=== PATIENT | female | born 1950 | race American Indian/Alaskan Native ===

== ENCOUNTER 2017-02-16 11:47 | Outpatient (CLI) | payer MEDICARE ==
--- NOTE | 2017-02-16 15:42 | XRay Report ---
Bilateral hips and pelvis: History: Hip pain. Findings: No lytic or blastic lesions and iliac bones. Mild arthritic changes at the superior lateral aspect of right and left hip joint. No fracture dislocation or soft tissue calcification. Impression: Mild arthritic changes hip joints.
--- NOTE | 2017-02-16 15:43 | XRay Report ---
Lumbar spine 3 views: History: Back pain. Findings: Normal height of vertebral bodies. Decrease in height of intervertebral disc spaces. Sclerotic articular surfaces with peripheral osteophytes suggestive of degenerative changes. Degenerative changes also noted in the facet joints of lower lumbar spine. No soft tissue calcification. Impression: Degenerative lumbar spine
== END 2017-02-16 11:48 | disposition home or self-care (01) ==
LOC: SPVIMAG 11:47
DX: M16.0 Bilateral primary osteoarthritis of hip (principal); M47.896 Other spondylosis, lumbar region
CPT/HCPCS: 72100; 73521

== ENCOUNTER 2017-04-27 10:05 | Outpatient (CLI) | payer MEDICARE ==
--- NOTE | 2017-04-27 15:36 | Mammography Report ---
BILATERAL DIGITAL SCREENING MAMMOGRAM with CAD: 04/27/17 10:05:00 CLINICAL: Routine screening. COMPARISON:04/14/16 FINDINGS: The breasts are heterogeneously dense, which may obscure small masses. No mass, architectural distortion or suspicious calcifications. IMPRESSION: No mammographic evidence of malignancy. BI-RADS CATEGORY: 1 - - Negative RECOMMENDATION: Routine mammographic screening in one year. COMMENT: Patient follow-up letters are generated by our [employer] application.
== END 2017-04-27 10:06 | disposition home or self-care (01) ==
LOC: SPVWC 10:05
DX: Z12.31 Encounter for screening mammogram for malignant neoplasm of breast (principal)
CPT/HCPCS: 77067; G0202

== ENCOUNTER 2017-05-03 11:54 | Outpatient (CLI) | payer MEDICARE ==
--- NOTE | 2017-05-03 20:11 | XRay Report ---
FINAL REPORT PROCEDURE: XR SPINE LUMBOSACRAL 2-3V TECHNIQUE: Lumbar spine radiographs, including AP, lateral, and lumbosacral spot views. CPT 28215 HISTORY: LOW BACK PAIN COMPARISON: No prior studies are available for comparison. FINDINGS: Alignment: Minimal degree retrolisthesis measuring about 2 millimeters is noted at L3-4. Minimal degree anterolisthesis is noted at L4-5 measuring about 3 millimeters. Vertebral body heights/Disk spaces: Disc space narrowing is identified at L3-4 and L4-5. Fracture(s): None. Facets: Facet arthropathy is identified from L3-4 to L5-S1. Bone mineralization: Normal. IMPRESSION: No acute fracture. Facet arthropathy. Degenerative disc disease at L3-4 and L4-5..
--- NOTE | 2017-05-03 20:37 | XRay Report ---
FINAL REPORT PROCEDURE: XR HAND BILAT 3+V TECHNIQUE: LEFT hand radiographs, AP, lateral, and oblique views. CPT 03351-OU HISTORY: BILATERAL HAND PAIN COMPARISON: No prior studies are available for comparison. FINDINGS: Fracture (s) and/or Dislocation(s): None . Alignment: Normal . Joint space(s): narrowing of interphalangeal joint spaces is noted with moderate degree osteophyte formation.. Soft tissues: Normal . Bone mineralization: Normal . Foreign bodies: None . IMPRESSION: Changes of osteoarthritis. No acute fracture..
== END 2017-05-03 11:55 | disposition home or self-care (01) ==
LOC: SPVIMAG 11:54
DX: M19.042 Primary osteoarthritis, left hand (principal); M19.041 Primary osteoarthritis, right hand; M51.36 Other intervertebral disc degeneration, lumbar region
CPT/HCPCS: 72100

== ENCOUNTER 2018-02-25 10:09 | Outpatient (CLI) | payer OTHER, MEDICARE ==
--- NOTE | 2018-02-25 12:20 | XRay Report ---
LEFT KNEE, 2 views: History: Osteoarthritis. Normal bone mineralization. Moderate osteoarthritic changes are identified throughout all 3 compartments of the knee. No evidence for fracture, large osteochondral defect or bone lesion. Small joint effusion is noted on the lateral image. IMPRESSION: Moderate tricompartmental osteoarthritis. Small joint effusion.
== END 2018-02-25 10:10 | disposition home or self-care (01) ==
LOC: XRAY 10:09
PROVIDERS: ATTEND Orthopaedic Surgery
DX: M17.12 Unilateral primary osteoarthritis, left knee (principal)

== ENCOUNTER 2018-06-11 09:21 | Inpatient (IN) | payer OTHER, MEDICARE ==
[2018-06-03 09:46] LABS: Basophils % (Auto) 0.7 % (0.0-1.8); Eosinophils # (Auto) 0.2 K/mm3 (0.0-0.4); Hemoglobin 12.5 gm/dl (10.1-14.3); Lymphocytes # (Auto) 2.3 K/mm3 (1.2-5.4); Lymphocytes % (Auto) 36.4 % (13.4-35.0); Mean Corpuscular HGB Conc 33 % (30-34); Mean Corpuscular Volume 87 fl (79-97); Monocytes # (Auto) 0.6 K/mm3 (0.0-0.8); Monocytes % (Auto) 8.9 % (0.0-7.3); Platelet Count 207 K/mm3 (140-440); Red Blood Count 4.36 M/mm3 (3.65-5.03); Red Cell Distribution Width 14.6 % (13.2-15.2)
[2018-06-03 09:57] LABS: INR 0.98 (0.87-1.13)
[2018-06-03 10:18] LABS: Alanine Aminotransferase 13 units/L (7-56); BUN/Creatinine Ratio 12; Blood Urea Nitrogen 12 mg/dL (7-17); Calcium 9.3 mg/dL (8.4-10.2); Hemolysis Index 17
--- NOTE | 2018-06-03 11:08 | Anesthesia Consultation ---
Anesthesia Consult and Med Hx Date of service: 06/03/18 - Airway Anesthetic Teeth Evaluation: Good ROM Head & Neck: Adequate Mental/Hyoid Distance: Adequate Mallampati Class: Class II Intubation Access Assessment: Probably Good - Pulmonary Exam CTA: Yes - Cardiac Exam Cardiac Exam: RRR - Pre-Operative Health Status ASA Pre-Surgery Classification: ASA3 Proposed Anesthetic Plan: General Nerve Block: Adductor Canal Block - Pulmonary Hx Smoking: No Hx Asthma: No COPD: No Hx Sleep Apnea: No (JADE PRE SCREEN LOW RISK.) - Cardiovascular System Hx Hypertension: Yes (X 5 YRS) Hx Heart Attack/AMI: No Hx Angina: No Hx Pacemaker: No - Central Nervous System CVA: No Hx Back Pain: Yes - Endocrine Hx Renal Disease: No - Hematic Hx Anemia: Yes ( TEEN ONLY) - Other Systems Hx Cancer: No
[~2018-06-11 09:21] MED LIST: ANCEF/STERILE WATER 2 GM/20 ML IV NR
--- NOTE | 2018-06-11 10:17 | Anesthesia Day of Surgery ---
Anesthesia Day of Surgery - Day of Surgery Patient Examined: Yes Patient H&P Reviewed: Yes Patient is NPO: Yes
[2018-06-11] MEDS ORDERED: LACTATED RINGERS 1,000 ML ONE (10:19)
[2018-06-11] MEDS ORDERED: NACL ONE (10:28)
[2018-06-11] MEDS ORDERED: TRANEXAMIC ACID ONE (10:28)
[2018-06-11] MEDS ORDERED: TORADOL ONE (10:28)
[2018-06-11] MEDS ORDERED: MARCAINE-EPI 0.5%-1:200,000 INFILTRATI ONE ×2 (10:28→14:11)
[2018-06-11] MEDS ORDERED: NACL 0.9% 100 ML ONE (10:29)
[2018-06-11] MEDS ORDERED: MORPHINE ONE (10:29)
[2018-06-11] MEDS ORDERED: DILAUDID IV PRN (10:30)
[2018-06-11] MEDS ORDERED: NEURONTIN PO NR (10:30)
[2018-06-11] MEDS ORDERED: LACTATED RINGERS 1,000 ML IV SCH (10:30)
[2018-06-11] MEDS ORDERED: VERSED IV NR (10:30)
[2018-06-11] MEDS ORDERED: DECADRON ONE ×2 (10:42→12:52)
--- NOTE | 2018-06-11 11:37 | Progress Note ---
Subjective Date of service: 06/11/18 (block note) Principal diagnosis: L knee DJD Interval history: 68 y/o F presenting for L TKA. Surgeon requests block for postop analgesia. Informed consent obtained. Pt sedated with midazolam. All blocks performed under ultrasound guidance, and under clean conditions after chlorhexidine prep. L adductor canal with 30 ml 0.25% Bupivacaine with 4 mg decadron. L Ipack performed with 20 ml 0.25% bupivacaine with 4 mg decadron. Bilateral superior genicular branches blocked with 10 ml 0.25% bupivacaine. Pt tolerated well, no heme or paresthesia at any site. All volume administered via 21ga b bevel needle. Objective - Constitutional Vitals: Vital Signs - 12hr 06/11/18 06/11/18 06/11/18 09:55 10:27 10:37 Temperature 98.4 F Pulse Rate 80 75 Respiratory 15 15 18 Rate Blood Pressure 136/78 142/84 O2 Sat by Pulse 100 99 Oximetry 06/11/18 06/11/18 06/11/18 10:45 10:51 10:56 Temperature Pulse Rate 77 70 72 Respiratory 21 16 17 Rate Blood Pressure 131/79 131/77 133/78 O2 Sat by Pulse 99 100 100 Oximetry 06/11/18 06/11/18 06/11/18 11:01 11:06 11:20 Temperature Pulse Rate 74 69 61 Respiratory 17 17 17 Rate Blood Pressure 133/78 127/74 122/65 O2 Sat by Pulse 100 96 97 Oximetry - Labs CBC & Chem 7: 06/03/18 09:30 06/03/18 09:30
[2018-06-11] MEDS ORDERED: DILAUDID ONE (11:44)
[2018-06-11] MEDS ORDERED: DIPRIVAN 10 MG/ML IV ONE (11:44)
[2018-06-11] MEDS ORDERED: XYLOCAINE MPF 2% ONE (11:44)
[2018-06-11] MEDS ORDERED: NACL IV ONE (12:50)
[2018-06-11] MEDS ORDERED: TRANEXAMIC ACID IV ONE (12:50)
[2018-06-11] MEDS ORDERED: ZOFRAN ONE (12:52)
[2018-06-11] MEDS ORDERED: SUBLIMAZE ONE ×2 (13:12→13:53)
[2018-06-11] MEDS ORDERED: NACL 0.9% IR ONE (13:45)
[2018-06-11] MEDS ORDERED: MORPHINE IM ONE (14:11)
[2018-06-11] MEDS ORDERED: NACL 0.9% IV ONE (14:11)
[2018-06-11] MEDS ORDERED: TORADOL IV ONE (14:11)
[2018-06-11] MEDS ORDERED: MORPHINE IV PRN (15:23)
[2018-06-11] MEDS ORDERED: ZOFRAN IV PRN (15:23)
[2018-06-11] MEDS ORDERED: AMBIEN PO PRN (15:23)
--- NOTE | 2018-06-11 15:36 | Procedure Note ---
Date of procedure: 06/11/18 Pre-op diagnosis: severe osteoarthritis left knee Post-op diagnosis: same Procedure: Left total knee arthroplasty Procedure The patient was brought to the or after the femoral nerve block and preoperative holding, he was placed in the or table in supine position following induction with Mac anesthesia the patient's left lower extremity was prepped and draped in the usual sterile manner. A timeout procedure was done to identify the patient and the correct operative site The leg was exsanguinated followed by insufflation of the pneumatic tourniquet to 300 mmHg. The midline incision was made centered over the patella this is taken down distally towards due to multiple medical incision was carried down sharply through skin and subcutaneous A sub-brow cyst approach was used after elevating the vastus off the distal femur. The knee was flexed to 90 following O's examination revealed typical where along the medial lateral compartments with peripheral osteophytes and bare bone in some places followinga large drill bit was used to enter the distal femoral canal following this the distal femoral cutting was applied approximately 8-9 mm of bone was resected next the attention was turned to the proximal tibia using the external alignment again 8-9 mL of proximal tibia was resected care was taken to protect the medial and lateral collateral ligaments the cruciate ligaments were sacrificed longus sizing of the femoral component was performed a +3 femoral component was selected this was followed by application of the 4 in 1 cutting block care was taken to resect the anterior posterior as well as solution at this at this point in time the knee was sized A flexion and extension Of 10 mm was selected this was followed by application of the trial components the knee was then taken to or range of motion and was found to be stable following this fixation holes were applied to both the distal femur and proximal tibia care was taken to remove the medial lateral menisci as well as any excess bone and soft tissue debris the knee was then copiously irrigated using pulse lavage The bone cement was mixed the bone bleeding surfaces were wiped dry using sterile gauze for menisci tibial component was inserted using the cement technique the 10 mm polyethylene spacer was applied and secured this was followed by placement of the femoral component again excess cement was removed the knee was then held in flexion ostomy extension until the cement hardened following hardening of cement again a second look was performed and the residual soft tissue N cement debris were removed at this time the baby was then taken through a range of motion and was found to be stable next the Kenyon's incision was repaired using #1 Vicryl in interrupted [id number] suture pattern the subcutaneous and skin were closed in a routine manner. Dressings w ere applied the patient tolerated the procedure the retinal complications she was then taken to postanesthesia recovery Anesthesia: MAC, regional Surgeon: LA[place] LEIVA Estimated blood loss: minimal Pathology: none Condition: stable Disposition: PACU
[2018-06-11] MEDS ORDERED: SODIUM CHLORIDE FLUSH SYRINGE 10 ML IV NR (16:00)
--- NOTE | 2018-06-11 16:01 | Post Anesthesia Evaluation ---
- Post Anesthesia Evaluation Patient Participated: Yes Airway Patent: Yes Stable Respiratory Function: Yes Nausea/Vomiting: No Temp > 96.8F: Yes Pain Manageable: Yes Adequeate Hydration: Yes Anesthesia Complications: No Other Comments: Adequate pain control with regional block as expected. No apparent complications.
[2018-06-11] MEDS: ANCEF/NS 1 GM/50 ML 1 GM/50 ML BAG IV SCH (21:17)
[2018-06-12] MEDS: MORPHINE IV PRN ×3 (01:21→21:38)
[2018-06-12 05:01] LABS: Hematocrit 34.2 % (30.3-42.9); Hemoglobin 11.2 gm/dl (10.1-14.3)
[2018-06-12] MEDS: ANCEF/NS 1 GM/50 ML 1 GM/50 ML BAG IV SCH (06:09)
[2018-06-12] MEDS: LOVENOX SUB-Q SCH ×2 (08:31→10:00)
[2018-06-12] MEDS ORDERED: PNEUMOVAX 23 IM ONE (12:00)
[2018-06-12] MEDS: PERCOCET 5/325 PO PRN ×2 (12:35→18:05)
--- NOTE | 2018-06-12 17:04 | Progress Note ---
Assessment and Plan Status post left total knee replacement Continue physical therapy and rehabilitation Subjective Date of service: 06/12/18 Principal diagnosis: L knee DJD Interval history: Complaining of some incisional pain otherwise doing well Objective Vital signs: Vital Signs - 12hr 06/12/18 06/12/18 07:38 11:56 Temperature 98.5 F 98.6 F Pulse Rate 74 76 Respiratory 18 18 Rate Blood Pressure 109/66 Blood Pressure 114/64 [Left] O2 Sat by Pulse 96 98 Oximetry Narrative Exam: Postoperative dressings intact and compartments soft Homans sign negative - Labs CBC & BMP: 06/12/18 04:26 06/03/18 09:30
--- NOTE | 2018-06-12 23:29 | XRay Report ---
FINAL REPORT EXAM: XR KNEE 1-2V LT HISTORY: postop evaluation TECHNIQUE: Frontal and lateral views left knee Comparison: None FINDINGS: There is a 2 part knee prosthesis in anatomic alignment. There are soft tissue changes consistent with acute postsurgical change IMPRESSION: 1. Status post placement of 2 part knee prosthesis with acute postsurgical change in the adjacent sof t tissues.
[2018-06-13] MEDS: PERCOCET 5/325 PO PRN ×2 (03:46→12:19)
[2018-06-13] MEDS: MORPHINE IV PRN ×3 (09:10→20:27)
[2018-06-13] MEDS: LOVENOX SUB-Q SCH (09:10)
--- NOTE | 2018-06-13 13:40 | Progress Note ---
Subjective Principal diagnosis: L knee DJD Interval history: no c/o's noted Objective Vital signs: Vital Signs - 12hr 06/13/18 06/13/18 06/13/18 03:52 07:30 09:40 Temperature 99.1 F 98.8 F Pulse Rate 76 76 Respiratory 18 20 Rate Blood Pressure 125/67 123/66 [Left] O2 Sat by Pulse 99 100 Oximetry 06/13/18 06/13/18 10:00 11:17 Temperature 99.1 F Pulse Rate 80 Respiratory 20 Rate Blood Pressure 109/62 [Left] O2 Sat by Pulse 100 93 Oximetry Narrative Exam: post op day 2 doing well will dc to home tomorrow with homehealth... - Labs CBC & BMP: 06/12/18 04:26 06/03/18 09:30
[2018-06-14] MEDS: PERCOCET 5/325 PO PRN ×3 (02:19→16:31)
[2018-06-14] MEDS: LOVENOX SUB-Q SCH (10:02)
--- NOTE | 2018-06-14 11:34 | Discharge Summary ---
Providers - Providers Date of Admission: 06/11/18 15:20 Date of discharge: 06/14/18 Attending physician: LAKE LEIVA MD 06/11/18 15:23 Consult to Case Management [CONS] Routine Services Needed at Discharge: Home Health Services Physical Therapy Notified:: nita notified 06/11/18 15:26 Physical Therapy Evaluation and Treat [CONS] Routine Comment: Reason For Exam: postoperative evaluation Weight bearing status?: Full wt bearing Assistive devices?: Yes If so list: Walker Primary care physician: MOLLY DAI Hospitalization Condition: Stable Procedures: left total knee replacement Disposition: [id number]/TX-[id number] HOME UNDER HOME [facility] Core Measure Documentation - Palliative Care Palliative Care/ Comfort Measures: Not Applicable - Core Measures Any of the following diagnoses?: none - VTE Discharge Requirements Deep Vein Thrombosis/Pulmonary Embolism Present on Admission: No Has pt received <5 days of overlap therapy or INR<2.0: Yes Anticoagulant overlap therapy prescribed at discharge: Yes Contraindication No Overlap Therapy order at DC: Medical Contraindication - Acute DC Discharge Requirements Aspirin at discharge: No Reason for no aspirin on DC: Medical contraindication SHANEL/ARB for LVSD if EF <40%: Not Applicable Reason for no SHANEL/ARB: Medical contraindication Beta cherie at discharge: No Reason for no beta cherie on DC: Medical contraindication Statin for LDL = or >100 mg/dl on DC: Not Applicable Reason for no statin on DC: Medical contraindication - Heart Failure Discharge Requirements SHANEL/ARB for LVSD if EF <40%: Not Applicable Beta cherie at discharge: No Reason for no beta cherie on DC: Medical contraindication - Stroke Discharge Requirements Statin for LDL = or >70 mg/dl on DC: Not Applicable Exam - Physical Exam Narrative exam: post op day 2 doing well will dc to home tomorrow with [facility]... - Constitutional Vitals: Temp Pulse Resp BP Pulse Ox 97.9 F 79 18 137/70 95 06/14/18 08:12 06/14/18 08:12 06/14/18 08:12 06/14/18 08:12 06/14/18 08:12 Plan Activity: advance as tolerated Weight Bearing Status: Weight Bear as Tolerated Diet: regular Wound: keep clean and dry Special Instructions: physical therapy Durable Medical Equipment Needed Upon Discharge: Walker-Standard, Bedside Commode Follow up with: MOLLY DAI MD, PHD [Primary Care Provider] - 7 Days Prescriptions: Apixaban [Eliquis] 0 mg PO BID 42 Days tablet HYDROcodone/APAP 7.5-325 [[place] 7.5-325 mg TAB] 1 each PO Q6HR PRN #40 tablet PRN Reason: Pain
[2018-06-14 15:37] VITALS: BP 131/75
== END 2018-06-14 18:23 | disposition home health service (06) | DRG 470 ==
LOC: OR 09:21 → EDSTATUS 11:30 → 3B-SURG 15:20
PROVIDERS: ADMIT Orthopaedic Surgery; ATTEND Orthopaedic Surgery
PROC: 0SRD0J9 Replacement of Left Knee Joint with Synthetic Substitute, Cemented, Open Approach (ICD-10-PCS; principal; 2018-06-11)
PROC: 3E0234Z Introduction of Serum, Toxoid and Vaccine into Muscle, Percutaneous Approach (ICD-10-PCS; 2018-06-12)
DX: M17.12 Unilateral primary osteoarthritis, left knee (principal); I10 Essential (primary) hypertension; Z23 Encounter for immunization; Z82.5 Family history of asthma and other chronic lower respiratory diseases; Z82.49 Family history of ischemic heart disease and other diseases of the circulatory system; Z80.9 Family history of malignant neoplasm, unspecified
CPT/HCPCS: 36415; 64450; 80053; 85014; 85018; 85025; 85610; 85730; 88304; 88305; 88311; 90732; G0378; A4217; C1713; C1776; J0690; J1100; J1170; J1650; J1885; J2250; J2270; J2405; J2704; J3010; J7120

== ENCOUNTER 2018-12-26 11:47 | Outpatient (CLI) | payer OTHER, MEDICARE ==
[2018-12-26 12:45] LABS: Alanine Aminotransferase 7 units/L (7-56); Albumin 4.8 g/dL (3.9-5); BUN/Creatinine Ratio 14; Blood Urea Nitrogen 11 mg/dL (7-17); Calcium 9.7 mg/dL (8.4-10.2); Chol/HDL Ratio 3.82 %; HDL Cholesterol 62 mg/dL (40-59); Hemolysis Index 4; LDL Cholesterol,Direct 163 mg/dL (50-130)
[2018-12-26 14:45] LABS: Hematocrit 42.7 % (30.3-42.9); Mean Corpuscular HGB Conc 33 % (30-34); Mean Corpuscular Volume 88 fl (79-97); Red Blood Count 4.88 M/mm3 (3.65-5.03); Red Cell Distribution Width 14.1 % (13.2-15.2)
[2018-12-26 16:04] LABS: Platelet Count 228 K/mm3 (140-440)
[2018-12-29 12:58] LABS: Vitamin D, 25-OH, D2 <4 ng/mL
== END 2018-12-26 11:48 | disposition home or self-care (01) ==
LOC: LAB 11:47
PROVIDERS: ATTEND Internal Medicine
DX: R73.9 Hyperglycemia, unspecified (principal); I10 Essential (primary) hypertension; K21.9 Gastro-esophageal reflux disease without esophagitis; Z13.21 Encounter for screening for nutritional disorder; Z13.220 Encounter for screening for lipoid disorders
CPT/HCPCS: 36415; 80053; 80061; 82306; 82607; 83036; 84443; 85027

== ENCOUNTER 2019-05-09 13:13 | Outpatient (CLI) | payer OTHER, MEDICARE ==
--- NOTE | 2019-05-12 15:50 | Mammography Report ---
DIGITAL SCREENING MAMMOGRAM WITH CAD, 05/09/2019 INDICATION: Routine screening mammography. TECHNIQUE: Digital bilateral 2D mammography was obtained in the craniocaudal and mediolateral obliq ue projections. This examination was interpreted with the benefit of Computer-Aided Detection analysi s. COMPARISON: 05/02/2018 FINDINGS: Breast Density: The breasts are heterogeneously dense, which may obscure small masses. There is no evidence of dominant mass, suspicious calcifications or architectural distortion in eithe r breast. Bilateral benign calcifications which are mostly arterial. IMPRESSION: No mammographic evidence of malignancy. Follow up recommendation: Routine yearly BI-RADS Category 2: Benign. A "normal" or negative report should not discourage follow up or biopsy of a clinically significant f inding. A written summary of these findings will be mailed to the patient. The patient will be entered into a mammography reporting system which will generate a reminder letter for the patient's next appointmen t at the appropriate interval. The [employer] recommends yearly mammograms starting at age 40 and continuing as l nestor as a woman is in good health. Breast MRI is recommended for women with an approximate 20-25% or greater lifetime risk of breast cancer, including women with a strong family history of breast or ova shaista cancer or who have been treated for Hodgkin's disease. Signer Name: Mohsen Menendez MD Signed: 05/12/2019 3:46 PM Workstation Name: [id number]
== END 2019-05-09 13:14 | disposition home or self-care (01) ==
LOC: SPVWC 13:13
PROVIDERS: ATTEND Internal Medicine
DX: Z12.31 Encounter for screening mammogram for malignant neoplasm of breast (principal)
CPT/HCPCS: 77067

== ENCOUNTER 2020-05-13 10:11 | Outpatient (CLI) | payer OTHER, MEDICARE ==
--- NOTE | 2020-05-13 12:53 | Mammography Report ---
DIGITAL SCREENING MAMMOGRAM WITH CAD, 05/13/2020 CLINICAL INFORMATION / INDICATION: Routine screening mammography. TECHNIQUE: Digital bilateral 2D mammography was obtained in the craniocaudal and mediolateral obliqu e projections. This examination was interpreted with the benefit of Computer-Aided Detection analysis . COMPARISON: 05/09/2019, 05/02/2018 FINDINGS: Breast Density: There are scattered areas of fibroglandular density. No dominant mass, suspicious calcifications, or architectural distortion in either breast. Bilateral benign calcifications are unchanged. IMPRESSION: No mammographic evidence of malignancy. Follow up recommendation: Routine yearly BI-RADS Category 2: Benign. A "normal" or negative report should not discourage follow up or biopsy of a clinically significant f inding. A written summary of these findings will be mailed to the patient. The patient will be entered into a mammography reporting system which will generate a reminder letter for the patient's next appointmen t at the appropriate interval. The [employer] recommends yearly mammograms starting at age 40 and continuing as l nestor as a woman is in good health. Breast MRI is recommended for women with an approximate 20-25% or greater lifetime risk of breast cancer, including women with a strong family history of breast or ova shaista cancer or who have been treated for Hodgkin's disease. Signer Name: Louie Carlson MD Signed: 05/13/2020 12:49 PM Workstation Name: [id number]
== END 2020-05-13 10:12 | disposition home or self-care (01) ==
LOC: SPVWC 10:11
PROVIDERS: ATTEND Internal Medicine
DX: Z12.31 Encounter for screening mammogram for malignant neoplasm of breast (principal)
CPT/HCPCS: 77067

== ENCOUNTER 2021-05-16 13:38 | Outpatient (CLI) | payer MEDICARE ==
--- NOTE | 2021-05-17 14:09 | Mammography Report ---
DIGITAL SCREENING MAMMOGRAM WITH CAD, 05/16/2021 CLINICAL INFORMATION / INDICATION: Routine screening TECHNIQUE: Digital bilateral 2D mammography was obtained in the craniocaudal and mediolateral obliqu e projections. This examination was interpreted with the benefit of Computer-Aided Detection analysis . COMPARISON: 05/13/2020 FINDINGS: Breast Density: There are scattered areas of fibroglandular density. No dominant mass, suspicious calcifications, or architectural distortion in either breast. Moderate arterial calcifications are again seen. Minimal left nodularity is stable. IMPRESSION: No mammographic evidence of malignancy. Follow up recommendation: Routine yearly BI-RADS Category 2: BENIGN. A "normal" or negative report should not discourage follow up or biopsy of a clinically significant f inding. A written summary of these findings will be mailed to the patient. The patient will be entered into a mammography reporting system which will generate a reminder letter for the patient's next appointmen t at the appropriate interval. The [employer] recommends yearly mammograms starting at age 40 and continuing as l nestor as a woman is in good health. Breast MRI is recommended for women with an approximate 20-25% or greater lifetime risk of breast cancer, including women with a strong family history of breast or ova shaista cancer or who have been treated for Hodgkin's disease. Signer Name: Zachary Chris MD Signed: 05/17/2021 2:05 PM Workstation Name: [id number]
== END 2021-05-16 13:39 | disposition home or self-care (01) ==
LOC: SPVWC 13:38
PROVIDERS: ATTEND Internal Medicine
DX: Z12.31 Encounter for screening mammogram for malignant neoplasm of breast (principal); N64.89 Other specified disorders of breast
CPT/HCPCS: 77067